=== PATIENT | female | born 1975 | race Caucasian/White ===

== ENCOUNTER 2016-11-19 12:34 | Day surgery (SDC) | payer OTHER ==
[~2016-11-19] VITALS: Ht 175.3 cm; Wt 90.7 kg
[~2016-11-19 12:34] MED LIST: AUGMENTIN875 MG PO; HYDROCODON-ACE1 EAC7 PO; LAMICTAL25 MG PO; LYRICA100 MG PO; LYRICA150 MG PO; METHYLPHENIDATE PO; METHYLPHENIDATE20 M6 PO; MOTRIN800 MG PO; RITALIN LA20 MG PO; RITALIN LA40 MG PO; RITALIN LA60 MG PO; TOPAMAX50 MG PO; VITAMIN D31000 UNIT PO; VITAMIN D33000 UNIT PO; ZESTRIL40 MG PO; ZOLOFT100 MG PO
== END 2016-11-19 14:55 | disposition home or self-care (01) ==
LOC: PAIN 12:34 → SDC 13:00 → PAIN 13:00
DX: M54.5 Low back pain (principal); M51.36 Other intervertebral disc degeneration, lumbar region; M46.1 Sacroiliitis, not elsewhere classified; M79.1 Myalgia; I10 Essential (primary) hypertension; E66.9 Obesity, unspecified; Z68.32 Body mass index [BMI] 32.0-32.9, adult; F17.210 Nicotine dependence, cigarettes, uncomplicated; F34.1 Dysthymic disorder; Z79.891 Long term (current) use of opiate analgesic; Z79.899 Other long term (current) drug therapy
CPT/HCPCS: J1030; J2250; J3010; S0020

== ENCOUNTER 2017-05-16 21:55 | Inpatient (IN) | payer OTHER ==
[~2017-05-16] VITALS: Ht 180.3 cm; Wt 98.1 kg
[2017-05-16 22:55] LABS: EOSINOPHIL (%) 0.3 % (0-5); HEMATOCRIT 40.7 % (36.0-46.0); IMMATURE GRANULOCYTE (%) 0.4 % (0.0-0.7); INSTRUMENT ABS NEUTROPHIL CT 9.8 K/uL; LYMPHOCYTE COUNT 0.9 K/uL (1.0-2.8); MCH 29.2 PG (29.0-34.0); MCHC 32.2 G/DL (30.0-36.0); MCV 90.6 FL (83-99); MEAN PLAT.VOLUME 11.9 uM^3 (9.5-12.4); MONOCYTE (%) 4.4 % (3-12); MONOCYTE COUNT 0.5 K/uL (0-0.8); NEUTROPHIL (%) 86.9 % (45-76); NEUTROPHIL COUNT 9.8 K/uL (1.8-6.4); PLATELET COUNT 124 K/uL (156-360); RBC DIS.WIDTH-CV 13.3 % (11.8-14.6); RBC DIS.WIDTH-SD 43.7 % (39-53); RED BLOOD COUNT 4.49 M/uL (3.80-5.20); WHITE BLOOD COUNT 11.3 K/uL (4.1-10.2)
[2017-05-16 23:00] LABS: INTER. NORMALIZED RATIO 3.2; PROTHROMBIN TIME 35.9 SEC (10.2-12.9)
[2017-05-16 23:03] LABS: PTT 40.1 SEC (25-37)
[2017-05-16 23:06] LABS: CHLORIDE 102 mEq/L (99-109); POTASSIUM 3.9 mEq/L (3.7-5.4); SODIUM 133 mEq/L (136-147)
[2017-05-16 23:09] LABS: ANION GAP 14 MEQ/L (2-14)
[2017-05-16 23:31] LABS: GLUCOSE 140 mg/dL (70-99)
[2017-05-16 23:35] LABS: GFR ESTIMATE (CALCULATED) 38 mL/min/
[2017-05-16 23:36] LABS: UREA NITROGEN (BUN) 14 mg/dL (9-23)
[2017-05-17] MEDS ORDERED: ASCORBIC ACID500 M3 PO (01:40)
[2017-05-17] MEDS ORDERED: COUMADIN5 MG PO (01:43)
[2017-05-17] MEDS ORDERED: FERROUS SULFAT325 MG PO (01:51)
[2017-05-17 03:46] LABS: LIPASE 33 U/L (1.0-51.0)
[2017-05-17 05:54] VITALS: BP 122/60; BP 122/76
[2017-05-17 06:45] LABS: EOSINOPHIL (%) 0 % (0-5); HEMATOCRIT 34.6 % (36.0-46.0); IMMATURE GRANULOCYTE (%) 0.7 % (0.0-0.7); IMMATURE GRANULOCYTE COUNT 0.1 K/uL; INSTRUMENT ABS NEUTROPHIL CT 8.4 K/uL; LYMPHOCYTE COUNT 0.7 K/uL (1.0-2.8); MCH 29.6 PG (29.0-34.0); MCHC 32.4 G/DL (30.0-36.0); MCV 91.5 FL (83-99); MEAN PLAT.VOLUME 12.9 uM^3 (9.5-12.4); MONOCYTE COUNT 0.5 K/uL (0-0.8); NEUTROPHIL (%) 86.8 % (45-76); NEUTROPHIL COUNT 8.4 K/uL (1.8-6.4); PLATELET COUNT 100 K/uL (156-360); RBC DIS.WIDTH-CV 13.5 % (11.8-14.6); RBC DIS.WIDTH-SD 44.5 % (39-53); RED BLOOD COUNT 3.78 M/uL (3.80-5.20); WHITE BLOOD COUNT 9.7 K/uL (4.1-10.2)
[2017-05-17 07:32] LABS: ALKALINE PHOSPHATASE 45 IU/L (3-129); ANION GAP 12 MEQ/L (2-14); CHLORIDE 106 MEQ/L (99-109); GFR ESTIMATE (CALCULATED) 33 mL/min/; GLUCOSE 145 mg/dL (70-99); POTASSIUM 3.6 MEQ/L (3.7-5.4); SAMPLE HEMOLYSIS CHECK 0; SAMPLE ICTERIC CHECK 0; SAMPLE LIPEMIA CHECK 0; SODIUM 136 MEQ/L (136-147); TOTAL BILIRUBIN 0.6 MG/DL (0.0-1.0); UREA NITROGEN (BUN) 16 mg/dL (9-23)
[2017-05-17 08:48] VITALS: BP 107/58
[2017-05-17 11:39] VITALS: BP 115/55
[2017-05-17 15:17] LABS: INTER. NORMALIZED RATIO 4.2
[2017-05-17 15:18] LABS: PROTHROMBIN TIME 48.5 SEC (10.2-12.9)
[2017-05-17 16:03] VITALS: BP 106/53
[2017-05-17 19:00] VITALS: BP 110/58
[2017-05-17 20:58] LABS: INTER. NORMALIZED RATIO 4.1; PROTHROMBIN TIME 46.9 SEC (10.2-12.9)
[2017-05-17 21:01] LABS: PTT 77.5 SEC (25-37)
[2017-05-17 23:42] VITALS: BP 111/58
[2017-05-18 03:53] VITALS: BP 123/70
[2017-05-18 05:23] LABS: HEMATOCRIT 31.9 % (36.0-46.0); MCH 29.4 PG (29.0-34.0); MCV 91.9 FL (83-99); MEAN PLAT.VOLUME 12.6 uM^3 (9.5-12.4); PLATELET COUNT 88 K/uL (156-360); RBC DIS.WIDTH-CV 13.3 % (11.8-14.6); RBC DIS.WIDTH-SD 43.8 % (39-53); RED BLOOD COUNT 3.47 M/uL (3.80-5.20); WHITE BLOOD COUNT 4.9 K/uL (4.1-10.2)
[2017-05-18 06:26] LABS: ANION GAP 7 MEQ/L (2-14); CHLORIDE 109 MEQ/L (99-109); GFR ESTIMATE (CALCULATED) > 59 mL/min/; POTASSIUM 3.8 MEQ/L (3.7-5.4); SAMPLE HEMOLYSIS CHECK 0; SAMPLE ICTERIC CHECK 0; SAMPLE LIPEMIA CHECK 0; SODIUM 138 MEQ/L (136-147); UREA NITROGEN (BUN) 12 mg/dL (9-23)
[2017-05-18 06:33] LABS: GLUCOSE 103 mg/dL (70-99)
[2017-05-18 07:09] LABS: ADD MIUA? YES; BILIRUBIN NEGATIVE; BLOOD LARGE; COLOR YELLOW ((YELLOW)); GLUCOSE (STRIP) NEGATIVE; KETONES NEGATIVE; LEUKOCYTES NEGATIVE; NITRITE NEGATIVE; PROTEIN (STRIP) NEGATIVE; SPECIFIC GRAVITY 1.012 (1.000-1.030); UROBILINOGEN 0.2 MG/DL (0.2-1.0)
[2017-05-18 07:18] LABS: BACTERIA RARE /HPF; EPITHELIAL CELLS 1+ /HPF; MUCUS TRACE /LPF; RED BLOOD CELLS 0-5 /HPF (0-5); WHITE BLOOD CELLS 0-5 /HPF (0-5)
[2017-05-18 07:20] VITALS: BP 128/68
[2017-05-18 10:46] LABS: PTT 49.3 SEC (25-37)
[2017-05-18 10:54] LABS: INTER. NORMALIZED RATIO 2.6; PROTHROMBIN TIME 29.9 SEC (10.2-12.9)
[2017-05-18 16:25] VITALS: BP 120/70
[2017-05-18 19:32] VITALS: BP 131/71
[2017-05-18 23:30] VITALS: BP 126/71
[2017-05-19 04:30] VITALS: BP 111/65
[2017-05-19 04:31] LABS: EOSINOPHIL (%) 2.5 % (0-5); EOSINOPHIL COUNT 0.1 K/uL (0-0.3); IMMATURE GRANULOCYTE (%) 0.5 % (0.0-0.7); INSTRUMENT ABS NEUTROPHIL CT 2.3 K/uL; LYMPHOCYTE COUNT 1.7 K/uL (1.0-2.8); MCH 29.6 PG (29.0-34.0); MCHC 32.6 G/DL (30.0-36.0); MCV 90.9 FL (83-99); MEAN PLAT.VOLUME 12.5 uM^3 (9.5-12.4); MONOCYTE (%) 6.1 % (3-12); MONOCYTE COUNT 0.3 K/uL (0-0.8); NEUTROPHIL (%) 51.4 % (45-76); NEUTROPHIL COUNT 2.3 K/uL (1.8-6.4); PLATELET COUNT 100 K/uL (156-360); RBC DIS.WIDTH-CV 13.2 % (11.8-14.6); RBC DIS.WIDTH-SD 43.4 % (39-53); RED BLOOD COUNT 3.41 M/uL (3.80-5.20); WHITE BLOOD COUNT 4.4 K/uL (4.1-10.2)
[2017-05-19 05:03] LABS: CHLORIDE 110 mEq/L (99-109); POTASSIUM 3.5 mEq/L (3.7-5.4); SODIUM 137 mEq/L (136-147)
[2017-05-19 05:05] LABS: GLUCOSE 88 mg/dL (70-99)
[2017-05-19 05:06] LABS: ANION GAP 8 MEQ/L (2-14)
[2017-05-19 05:09] LABS: GFR ESTIMATE (CALCULATED) > 59 mL/min/
[2017-05-19 05:10] LABS: UREA NITROGEN (BUN) 9 mg/dL (9-23)
[2017-05-19 07:17] VITALS: BP 118/70
[2017-05-19 14:32] VITALS: BP 116/68
[2017-05-19 16:38] LABS: INTER. NORMALIZED RATIO 1.5
[2017-05-19 16:40] LABS: PTT 50.4 SEC (25-37)
[2017-05-19 16:47] LABS: PROTHROMBIN TIME 17.2 SEC (10.2-12.9)
[2017-05-20 00:09] VITALS: BP 147/78
[2017-05-20 06:21] LABS: EOSINOPHIL COUNT 0.2 K/uL (0-0.3); IMMATURE GRANULOCYTE (%) 0.2 % (0.0-0.7); INSTRUMENT ABS NEUTROPHIL CT 2.2 K/uL; LYMPHOCYTE COUNT 1.8 K/uL (1.0-2.8); MCH 29.5 PG (29.0-34.0); MCHC 31.4 G/DL (30.0-36.0); MCV 94.2 FL (83-99); MEAN PLAT.VOLUME 11.6 uM^3 (9.5-12.4); MONOCYTE (%) 5.8 % (3-12); MONOCYTE COUNT 0.3 K/uL (0-0.8); NEUTROPHIL (%) 49.3 % (45-76); NEUTROPHIL COUNT 2.2 K/uL (1.8-6.4); PLATELET COUNT 108 K/uL (156-360); RBC DIS.WIDTH-CV 13.2 % (11.8-14.6); RBC DIS.WIDTH-SD 44.7 % (39-53); RED BLOOD COUNT 3.08 M/uL (3.80-5.20); WHITE BLOOD COUNT 4.5 K/uL (4.1-10.2)
[2017-05-20 06:34] LABS: INTER. NORMALIZED RATIO 1.4; PROTHROMBIN TIME 15.8 SEC (10.2-12.9)
[2017-05-20 06:52] LABS: ANION GAP 9 MEQ/L (2-14); CHLORIDE 109 MEQ/L (99-109); GFR ESTIMATE (CALCULATED) > 59 mL/min/; GLUCOSE 88 mg/dL (70-99); SAMPLE HEMOLYSIS CHECK 0; SAMPLE ICTERIC CHECK 0; SAMPLE LIPEMIA CHECK 0; SODIUM 139 MEQ/L (136-147); UREA NITROGEN (BUN) 6 mg/dL (9-23)
[2017-05-20 06:54] LABS: POTASSIUM 4.4 MEQ/L (3.7-5.4)
[2017-05-20 07:49] VITALS: BP 130/79
[2017-05-20 13:43] LABS: INTER. NORMALIZED RATIO 1.3; PROTHROMBIN TIME 15.3 SEC (10.2-12.9)
[2017-05-20 13:45] LABS: PTT 44.7 SEC (25-37)
[2017-05-20 16:16] VITALS: BP 115/61
[2017-05-20 23:32] VITALS: BP 124/71
[2017-05-21 07:08] VITALS: BP 145/64
[2017-05-21 09:53] LABS: EOSINOPHIL (%) 3.5 % (0-5); EOSINOPHIL COUNT 0.2 K/uL (0-0.3); HEMATOCRIT 28.7 % (36.0-46.0); IMMATURE GRANULOCYTE (%) 0.3 % (0.0-0.7); INSTRUMENT ABS NEUTROPHIL CT 3.9 K/uL; LYMPHOCYTE COUNT 1.9 K/uL (1.0-2.8); MCH 30.1 PG (29.0-34.0); MCHC 32.8 G/DL (30.0-36.0); MONOCYTE (%) 4.1 % (3-12); MONOCYTE COUNT 0.3 K/uL (0-0.8); NEUTROPHIL (%) 61.3 % (45-76); NEUTROPHIL COUNT 3.9 K/uL (1.8-6.4); RBC DIS.WIDTH-CV 13.2 % (11.8-14.6); RBC DIS.WIDTH-SD 44.7 % (39-53); RED BLOOD COUNT 3.12 M/uL (3.80-5.20); WHITE BLOOD COUNT 6.3 K/uL (4.1-10.2)
[2017-05-21 10:22] LABS: PLATELET COUNT 175 K/uL (156-360)
[2017-05-21 10:44] LABS: ANION GAP 10 MEQ/L (2-14); CHLORIDE 105 MEQ/L (99-109); GFR ESTIMATE (CALCULATED) > 59 mL/min/; POTASSIUM 4.4 MEQ/L (3.7-5.4); SAMPLE HEMOLYSIS CHECK 0; SAMPLE ICTERIC CHECK 0; SAMPLE LIPEMIA CHECK 0; SODIUM 140 MEQ/L (136-147); UREA NITROGEN (BUN) 5 mg/dL (9-23)
[2017-05-21 10:46] LABS: GLUCOSE 136 mg/dL (70-99)
[2017-05-21 15:14] VITALS: BP 106/57
[2017-05-21 23:49] VITALS: BP 128/64
[2017-05-22 07:08] VITALS: BP 134/79
[2017-05-22] MEDS ORDERED: NICOTINE PATCH1 EAC2 TD (12:08)
[2017-05-22] MEDS ORDERED: ELIQUIS5 MG PO (12:11)
[2017-05-22] MEDS ORDERED: KEFLEX500 MG PO (12:12)
[2017-05-22] MEDS ORDERED: ULTRACET1 TABLET PO (14:12)
== END 2017-05-22 16:15 | disposition home or self-care (01) | DRG 872 ==
LOC: EME 21:55 → 4EAST 05-17 02:49 → EDOF 05-17 02:49 → ENRESERV 05-17 02:51 → CANRESERV 05-17 03:45 → EDOF 05-17 04:40 → ENRESERV 05-17 04:40 → EDOF 05-17 04:40 → ENRESERV 05-17 04:41 → 4EAST 05-17 05:49 → ENRESERV 05-19 12:43 → 5SOUTH 05-19 14:29 → ENPENDDIS 05-22 → 5SOUTH 05-22 16:15
PROVIDERS: Emergency Medicine; Hospitalist; Internal Medicine; Physician Assistant
DX: A41.9 Sepsis, unspecified organism (principal); L03.115 Cellulitis of right lower limb; N17.9 Acute kidney failure, unspecified; I82.411 Acute embolism and thrombosis of right femoral vein; R65.20 Severe sepsis without septic shock; E87.2 Acidosis; D69.59 Other secondary thrombocytopenia; D62 Acute posthemorrhagic anemia; E87.6 Hypokalemia; R05 Cough; I10 Essential (primary) hypertension; F32.9 Major depressive disorder, single episode, unspecified; N92.0 Excessive and frequent menstruation with regular cycle; B35.3 Tinea pedis; L30.8 Other specified dermatitis; I89.0 Lymphedema, not elsewhere classified; G89.29 Other chronic pain; M54.5 Low back pain; G43.909 Migraine, unspecified, not intractable, without status migrainosus; F17.210 Nicotine dependence, cigarettes, uncomplicated; E66.9 Obesity, unspecified; Z68.31 Body mass index [BMI] 31.0-31.9, adult; Z79.01 Long term (current) use of anticoagulants; Z86.718 Personal history of other venous thrombosis and embolism; Z23 Encounter for immunization
CPT/HCPCS: 71020; 71250; 74176; 80048; 80053; 81003; 82272; 83605; 83690; 85025; 85027; 85610; 85730; 87040; 87502; 90686; 93005; 93971; 99281; 99285; J0690; J2405; J2543; J7030; J7050